=== PATIENT | male | born 1930 | race Caucasian/White ===

== ENCOUNTER 2018-01-01 15:31 | Emergency (ER) | payer MEDICARE, OTHER ==
[2018-01-01 17:08] LABS: ALT (SGPT) 17 U/L (8-55); AST (SGOT) 31 U/L (5-34); Albumin 3.9 g/dL (3.4-4.8); Alkaline Phosphatase 117 U/L (40-150); Anion Gap 18 mmol/L (10-20); BUN (Urea Nitrogen) 24 mg/dL (8.4-25.7); Bilirubin, Total 0.7 mg/dL (0.2-1.2); Calc. Creatinine Clearance 0 mL/min (70-130); Calcium 9.2 mg/dL (7.8-10.44); Carbon Dioxide 21 mmol/L (23-31); Chloride 106 mmol/L (98-107); Estimated GFR-MDRD 41; Globulin 2.9 g/dL (2.4-3.5); Glucose 111 mg/dL (83-110); Potassium 4.9 mmol/L (3.5-5.1); Protein, Total 6.8 g/dL (5.8-8.1); Sodium 140 mmol/L (136-145)
[2018-01-01 17:12] LABS: Hemoglobin 13.5 g/dL (14.0-18.0); Lymphocytes 8 % (21-51); MDiff Complete? YES; Mean Corpuscular HGB CONC 32.3 g/dL (32.0-36.0); Mean Corpuscular Hemoglobin 28.3 pg (27.0-31.0); Mean Corpuscular Volume 87.6 fl (80.0-94.0); Mean Platelet Volume 7.9 fL (7.4-10.4); Monocytes 7 % (0-10); Myelocyte 1 % (0-0); Neutrophil 67 % (42-75); PLT Morphology Comment Appears Adequate; Platelet Count 162 thou/uL (130-400); RBC Distribution Width 13.3 % (11.5-14.5); RBC Morphology Normal; Reactive Lymphocytes 17 % (0-10); Red Blood Cell (RBC) Count 4.78 mill/uL (4.70-6.10); White Blood Cell (WBC) Count 12.6 thou/uL (4.8-10.8)
[2018-01-01] MEDS ORDERED: Phenergan/Codeine 10-6.25mg/5ml UDCUP ONE (17:15)
[2018-01-01] MEDS ORDERED: AMOXicillin 250 MG CAP ONE (17:15)
[2018-01-01] MEDS ORDERED: Morphine 10 MG/ML VIAL ONE (17:15)
[2018-01-01] MEDS ORDERED: Ketorolac Tromethamine 30 MG/ML VIAL ONE (17:15)
[2018-01-01] MEDS ORDERED: Tobramycin Sulfate 0.3% Ophth Susp 5 ml Bottle ONE ×2 (17:15→17:18)
--- NOTE | 2018-01-01 17:25 | RAD ---
AP VIEW OF THE CHEST: 01/01/18 INDICATION; Right sided chest pain. COMPARISON: None. FINDINGS: No air space consolidation is evident. 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 No pleural effusion or pneumothorax is evident. Heart size is upper limits of normal . Pulmonary vasculature is within normal limits. There are vascular calcifications involving the aort ic arch. IMPRESSION: No acute abnormality. POS: [facility]
== END 2018-01-01 18:45 | disposition home or self-care (01) ==
LOC: MADERS 15:31
DX: R07.81 Pleurodynia (principal); H10.9 Unspecified conjunctivitis; Z86.73 Personal history of transient ischemic attack (TIA), and cerebral infarction without residual deficits; Z87.891 Personal history of nicotine dependence
CPT/HCPCS: 71045; 80053; 83880; 85025; 87081; 87430; 87804; 96374; 96375; J1885; J2270

== ENCOUNTER 2018-01-31 17:08 | Emergency (ER) | payer OTHER ==
[2018-01-31] MEDS ORDERED: Aspirin 325 MG TAB ONE (17:45)
--- NOTE | 2018-01-31 18:29 | RAD ---
PA AND LATERAL OF THE CHEST: 01/31/18 INDICATION: Cough. COMPARISON: Prior exam dated 01/01/18. FINDINGS: There is mild right basilar atelectasis. Chronic lung change otherwise stable. Mild cardiomegaly is s imilar. Moderate sized hiatal hernia is present. There is diffuse osteopenia. There are vascular calc ifications involving the aortic arch. Calcified lymph nodes within the mediastinum. IMPRESSION: 1. No acute cardiopulmonary abnormality. 2. Mild right basilar atelectasis. 3. Moderate sized hiatal hernia. 4. Findings of prior granulomatous disease. POS: [facility]
[2018-01-31 18:47] LABS: ALT (SGPT) 21 U/L (8-55); AST (SGOT) 22 U/L (5-34); Albumin 3.5 g/dL (3.4-4.8); Alkaline Phosphatase 135 U/L (40-150); Anion Gap 16 mmol/L (10-20); BUN (Urea Nitrogen) 23 mg/dL (8.4-25.7); Bilirubin, Total 0.2 mg/dL (0.2-1.2); CK (CPK) 55 U/L (30-200); Calc. Creatinine Clearance 0 mL/min (70-130); Calcium 9.5 mg/dL (7.8-10.44); Carbon Dioxide 23 mmol/L (23-31); Chloride 108 mmol/L (98-107); Estimated GFR-MDRD 46; Globulin 3.4 g/dL (2.4-3.5); Glucose 90 mg/dL (83-110); Potassium 4.6 mmol/L (3.5-5.1); Protein, Total 6.9 g/dL (5.8-8.1); Sodium 142 mmol/L (136-145)
[2018-01-31 18:49] LABS: CKMB 1.1 ng/mL (0-6.6); Troponin I 0.018 ng/mL (< 0.028)
[2018-01-31 19:04] LABS: Band 1 % (5-11); Eosinophils 1 % (0-10); Hemoglobin 12.4 g/dL (14.0-18.0); Lymphocytes 51 % (21-51); MDiff Complete? YES; Mean Corpuscular HGB CONC 30.6 g/dL (32.0-36.0); Mean Corpuscular Hemoglobin 26.5 pg (27.0-31.0); Mean Corpuscular Volume 86.5 fl (80.0-94.0); Mean Platelet Volume 6.3 fL (7.4-10.4); Metamyelocyte 1 % (0-0); Monocytes 3 % (0-10); Myelocyte 1 % (0-0); Neutrophil 42 % (42-75); PLT Morphology Comment Appears Increased; Platelet Count 495 thou/uL (130-400); Red Blood Cell (RBC) Count 4.67 mill/uL (4.70-6.10)
[2018-01-31] MEDS ORDERED: cefTRIAXone\\ROCEPHIN 1 GM VIAL ONE (19:50)
== END 2018-01-31 20:22 | disposition home or self-care (01) ==
LOC: MADERS 17:08
DX: J20.9 Acute bronchitis, unspecified (principal); E78.5 Hyperlipidemia, unspecified; Z86.73 Personal history of transient ischemic attack (TIA), and cerebral infarction without residual deficits; Z87.891 Personal history of nicotine dependence; Z79.02 Long term (current) use of antithrombotics/antiplatelets; Z79.899 Other long term (current) drug therapy
CPT/HCPCS: 71046; 80053; 82550; 82553; 83605; 83880; 84484; 85025; 85379; 87040; 93005; 96374; J0696